=== PATIENT | female | born 2005 | race Caucasian/White ===

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

== ENCOUNTER 2023-01-24 08:00 | Outpatient (RCR) | payer BC, SELFPAY ==
--- NOTE | 2023-01-03 10:43 | HMH.PTOPEV ---
PT Outpatient Evaluation Rehab PT Outpatient Evaluation Start: 01/03/23 08:51 Freq: Status: Active Protocol: Document 01/03/23 08:52 PDEARTHUR (Rec: 01/03/23 10:43 PDESEROUX [id number]) E-signed By Dell De La Torre, PT Outpatient Therapy Subjective History Subjective History Pt. is a 17 year old female whom presents to [facility] Out[facility] Physical Therapy Services in [place] for the initial evaluation this date( 01/03/23) w/ c/o chronic and constant RUE wrist/forearm P!, TTP, and weakness of insidious onset that has progressively worsened since 2021. Pt. reports initial onset of symptoms was insidious and three years ago waking up one morning. 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 Pt. reports symptoms became intermittent secondary to bracing, resting, and icing. However, pt. reports symptoms began to progressively worsen last 2021. Pt. reports having 1 month of symptom relief w/ steroid injection, but states symptoms returned and got worse. 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 per pt. report. Recent diagnostic imaging(MRI) positive for inflammation in the bone marrow per pt. report. Pt. reports symptoms worsen w/ lifting obejcts, shearing hair , and moving the hand. Pt. RTMD 01/25/23. Current medications include Tylenol, Hydroxyzine, Welbutrin, and Bentyl. PMH includes Cholecystectomy, tubal
== END 2023-02-14 09:10 | disposition home or self-care (01) ==
LOC: PT 08:00
PROVIDERS: PCP Nurse Practitioner Family; Visit Provider Orthopaedic Surgery
DX: M25.531 Pain in right wrist (principal)
CPT/HCPCS: 20560; 97010; 97014; 97033; 97035; 97110; 97140; 97163; G0283

== ENCOUNTER 2023-02-20 11:02 | Emergency (ER) | payer BC, SELFPAY ==
[2023-02-20 11:15] VITALS: BP 116/78; PULSE 84; RESP 18; TEMP 37.1; O2SAT 98; BMI 17.4
--- NOTE | 2023-02-20 11:26 | EXP.UTC ---
Discharge Plan Disposition Patient Disposition: Home, Self-Care Condition: Good Prescriptions Prescriptions: New amoxicillin-pot clavulanate 875-125 mg Tablet 1 tab PO Q12H Qty: 20 0RF methylprednisolone [Medrol (Deo)] 4 mg tablets,dose pack See Rx Instructions .Route .COMPLEX 6 Days Qty: 21 0RF Rx Instructions: taper pack; No Action nabumetone 750 mg tablet 750 mg PO BID 15 Days Qty: 30 0RF medroxyprogesterone 150 mg/mL suspension 150 mg IM cefdinir 300 mg capsule 300 mg PO DAILY Label Comments: TAKE ONE CAPSULE BY MOUTH EVERY TWELVE HOURS FOR 10 DAYS bupropion HCl 150 mg tablet sustained-release 12 hr 150 mg PO hydroxyzine HCl 25 mg tablet 25 mg PO TID Label Comments: take 1-2 tablets by moouth as needed 4 times daily. dicyclomine 10 mg capsule 10 mg PO ONCE Referrals Follow up/Referrals: Jeff Thompson MD [Physician] - See instructions Servando Chavis MD [Physician] - See instructions Ivette Pires APRN [Primary Care Provider] - See instructions Wilder Ojeda III, MD [Staff Physician] - See instructions Activity Restrictions/Add. Instructions Additional Instructions/Restrictions: *Monitor Temp, Over the counter Motrin or Tylenol as directed/as needed Tylenol every 4 hours and Motrin every 6 hours (as long as your family doctor has told you that you can take it) for fever or pain. and straight to ER if unable to lower temp less than 101.0 after medication given *Warm salt water gargles may help to soothe the throat *Throat Lozenges? *Warm fluids like tea with honey may help to soothe the throat? *Sleep elevated *Humidifier/Vaporizer Your throat swab was sent for culture. Those results are typically sent to your primary care. Be sure to follow up in 2-3 days with your family doctor/primary care physician if no improvement so they can review those result and treat if necessary. If you don?t have a primary care doctor, I recommend you get one but in the mean time, you will have to return to a walk in clinic Follow up IMMEDIATELY for new or worsening symptoms or no Noticeable improvement over the next 48-72 hours. 911 for difficulty breathing or swallowing Follow up with ENT for further evaluation and examination Start oral steriods tomorrow Clinical Impressions Clinical Impression: Acute bacterial tonsillitis Instructions Patient Instructions: Sore Throat, DI for Peritonsillar Abscess -- Adult Discharge ED Provider: Courtney Woodson [facility] [place] HPI General Stated complaint: sore throat, sob Time Seen by Provider: 02/20/23 11:26 History of Present Illness Provider Complaint: Patient state that she had sore scratchy throat yesterday morning that got better then when she woke up this morning she had swelling in her tonsils and white area on her right tonsil and hurt when she would swallow or breath States that feels like it is swollen and hurts when she swallows Related Data Home Medications Medication Instructions Recorded Confirmed bupropion HCl 150 mg tablet,12 hr 150 mg PO 12/02/22 01/25/23 sustained-release cefdinir 300 mg capsule 300 mg PO DAILY 12/02/22 01/25/23 dicyclomine 10 mg capsule 10 mg PO ONCE 12/02/22 01/25/23 hydroxyzine HCl 25 mg tablet 25 mg PO TID 12/02/22 01/25/23 medroxyprogesterone 150 mg/mL 150 mg IM 12/02/22 01/25/23 intramuscular suspension Previous Rx's Medication Instructions Recorded nabumetone 750 mg tablet 750 mg PO BID 15 days #30 tabs 05/06/20 amoxicillin 875 mg-potassium 1 tab PO Q12H #20 tabs 02/20/23 clavulanate 125 mg tablet methylprednisolone 4 mg tablets in See Rx Instructions .Route 02/20/23 a dose pack (Medrol (Deo)) .COMPLEX 6 days #21 tabs Allergies Allergy/AdvReac Type Severity Reaction Status Date / Time No Known Allergies Allergy Verified 01/25/23 14:16 [facility] Disclaimer: The information contained in this section may have been up
[2023-02-20 11:37] LABS: UTC Strep Screen (Rapid) Negative (Negative)
[2023-02-20 12:04] LABS: Monoscreen (Rapid) Negative (Negative)
[2023-02-20 12:48] VITALS: BP 116/78; PULSE 84; RESP 18; TEMP 37.1; O2SAT 98
== END 2023-02-20 12:50 | disposition home or self-care (01) ==
PROVIDERS: Emergency Provider Nurse Practitioner; PCP Nurse Practitioner Family
DX: J03.80 Acute tonsillitis due to other specified organisms (principal); R13.10 Dysphagia, unspecified
CPT/HCPCS: 86318; 87880; 96372; 99212; 99214; G0463